=== PATIENT | male | born 1975 | race Caucasian/White ===

== ENCOUNTER 2016-07-23 09:17 | Emergency (ER) | payer OTHER ==
[2016-07-23 09:27] VITALS: BP 115/74; PULSE 101; RESP 16; TEMP 98.4; O2SAT 94
--- NOTE | 2016-07-23 10:02 | EDPHY ---
H & P Time Seen by Provider: 07/23/16 09:49 HPI/ROS: CHIEF COMPLAINT: Toothache HISTORY OF PRESENT ILLNESS: This is a 41-year-old male presenting to the emergency department complaining toothache. Patient says he has had problems in the past with those back to molars aware that he needs to have them worked on or have them removed, 2 days ago he started having a dull ache in the tooth and gum. Using [id number] ibuprofen 600 mg at 8 o'clock this morning. Denies any fever chills nausea vomiting REVIEW OF SYSTEMS: Constitutional: No fever, no chills. Eyes: No discharge. ENT: No sore throat. Tooth ache Cardiovascular: No chest pain, no palpitations. Respiratory: No cough, no shortness of breath. Gastrointestinal: No abdominal pain, no vomiting. Musculoskeletal: No back pain. Skin: No rashes. Neurological: No headache. Smoking Status: Current some day smoker Physical Exam: General Appearance: Alert, no distress. Eyes: Pupils equal and round no pallor or injection. ENT, Mouth: TMs normal bilaterally no erythema. Mandibular molar on the left side crack, comes tender on palpation no abscess noted. No mastoiditis no trismus Mucous membranes moist. Respiratory: There are no retractions, lungs are clear to auscultation. Cardiovascular: Regular rate and rhythm. Neurological: No focal deficits Skin: Warm and dry, no rashes. Musculoskeletal: Neck is supple nontender. Extremities: symmetrical, full range of motion. Psychiatric: Patient is oriented X 3, there is no agitation. Constitutional: Initial Vital Signs Temperature (C) 36.9 C 07/23/16 09:25 Heart Rate 101 H 07/23/16 09:25 Respiratory Rate 16 07/23/16 09:25 Blood Pressure 115/74 07/23/16 09:25 O2 Sat (%) 94 07/23/16 09:25 O2 Delivery Mode Room Air Allergies/Adverse Reactions: oxycodone HCl [From OxyContin] Allergy (Mild, Verified 02/11/16 14:26) n/v OXYCONTIN Allergy (Uncoded 01/26/16 19:38) Home Medications: Medication Instructions Recorded Penicillin V Potassium 500 mg PO TID #30 tablet 02/11/16 Penicillin V Potassium [Penicillin 500 mg PO QID #40 tab 07/23/16 VK] Medical Decision Making ED Course/Re-evaluation: Discussed ED the plan of care: 1st dose of penicillin we given here, and no narcotics given. Discharge home---> stable, discussed discharge instructions Differential Diagnosis: Other differential diagnosis considered but not limited to periapical abscess, tooth fracture, and mastoiditis - Data Points Medications Given: Discontinued Medications Penicillin V Potassium (Pen Vk) 500 mg PO EDNOW ONE PRN Reason: Protocol Stop: 07/23/16 10:08 Last Admin: 07/23/16 10:37 Dose: Not Given Departure - Departure Disposition: Home, Routine, Self-Care Clinical Impression: Dental infection, Toothache Condition: Good Instructions: Dental Caries (ED), Toothache (ED) Additional Instructions: Discussed discharge instructions 1. Take all antibiotics as prescribed 2. Information given for dental aide or comfort dental follow-up this afternoon for further evaluation such as extractions 3. Ibuprofen 600-to 800 mg every 6-8 hours, Tylenol 500-1000mg every 6 hours as needed. You can also use [id number] Orajel on tooth and around gum this can a to decrease pain 4. If any symptoms worsen fever chills swelling to her face return to the ER Referrals: [facility] [Other] - As per Instructions Prescriptions: Penicillin V Potassium [Penicillin VK] 500 mg PO QID #40 tab
[2016-07-23] MEDS ORDERED: PENICILLIN VK 500 MG TAB PO ONE (10:07)
== END 2016-07-23 10:39 | disposition home or self-care (01) ==
DX: K08.89 Other specified disorders of teeth and supporting structures (principal); K04.7 Periapical abscess without sinus; F17.200 Nicotine dependence, unspecified, uncomplicated